=== PATIENT | male | born 1965 | race Caucasian/White ===

== ENCOUNTER 2018-02-26 13:46 | Inpatient (IN) | payer OTHER, MEDICAID ==
[~2018-02-26] VITALS: Ht 167.6 cm; Wt 56.7 kg
[~2018-02-26 13:46] MED LIST: FOLI-43 PO; INSLIS SUBCUT; LISI1TAB9 MT; METF10004 PO
[2018-02-26] MEDS ORDERED: MORPHINE SULFATE 4 MG/ML CPJ (NOT FOR IM USE) IV STA (16:23)
[2018-02-26] MEDS ORDERED: METOCLOPRAMIDE HCL 10MG/2ML VIAL IV STA (16:23)
[2018-02-26] MEDS ORDERED: FAMOTIDINE 20MG/2ML VIAL IV STA (16:23)
[2018-02-26 16:53] LABS: HEMATOCRIT. 40.2 % (42.0-52.0); HEMOGLOBIN. 13.2 g/dL (14.0-18.0); MEAN CORPUSCULAR VOLUME 94.2 fL (80.0-94.0); MEAN PLATELET VOLUME 8.4 fl (7.4-10.4); RED BLOOD CELL COUNT 4.27 mill/uL (4.7-6.1); RED CELL DISTRIBUTION WIDTH 15.6 % (11.6-14.6)
[2018-02-26 16:57] LABS: PLATELET 34 x1000/uL (130-400)
[2018-02-26 16:59] LABS: CHLORIDE 105 mEq/L (98-107)
[2018-02-26 17:04] LABS: ETHANOL BLOOD 59 mg/dL
[2018-02-26 17:42] LABS: PLATELET ESTIMATE MARKEDLY DECREASED
[2018-02-26 17:53] LABS: CLARITY URINE CLEAR (CLEAR); COLOR URINE YELLOW (YELLOW); KETONES URINE 3+ (NEGATIVE); LEUKOCYTE ESTERASE URINE NEGATIVE (NEGATIVE); NITRITE URINE NEGATIVE (NEGATIVE); OCCULT BLOOD URINE 1+ (NEGATIVE); PH URINE 5.5 (4.5-8.0); PROTEIN URINE TRACE (NEGATIVE); SPECIFIC GRAVITY URINE 1.028 (1.005-1.030); UROBILINOGEN URINE 0.2 E.U./dL (0.2-1.0)
[2018-02-26] MEDS ORDERED: IOHEXOL-300 100 ML BOTTLE ONE (18:09)
[2018-02-26 18:11] LABS: *BARBITURATES SCREEN URINE NEGATIVE (NEGATIVE)
[2018-02-26 18:12] LABS: *AMPHETAMINES SCREEN URINE NEGATIVE (NEGATIVE); *BENZODIAZEPINES SCREEN URINE NEGATIVE (NEGATIVE); *COCAINE SCREEN URINE NEGATIVE (NEGATIVE); METHADONE URINE SCREEN NEGATIVE (NEGATIVE); OPIATES URINE SCREEN NEGATIVE (NEGATIVE); PHENCYCLIDINE URINE SCREEN NEGATIVE (NEGATIVE)
[2018-02-26 18:13] LABS: CANNABINOID URINE SCREEN NEGATIVE (NEGATIVE)
[2018-02-26] MEDS ORDERED: SODIUM CHLORIDE 0.9% 1000ML BAG (SEPSIS BOLUS) IV ONE (19:15)
[2018-02-26] MEDS ORDERED: CEFTRIAXONE 1 G PREMIX 50 ML IV ONE (19:15)
[2018-02-26] MEDS ORDERED: POTASSIUM CHLORIDE 20MEQ TABLET SR PO ONE (19:30)
[2018-02-26] MEDS: HYDROMORPHONE HCL/PF 2MG/ML CPJ IV PRN (22:33)
[2018-02-26] MEDS ORDERED: ONDANSETRON HCL 4MG/2ML INJ IV PRN (23:14)
[2018-02-27] VITALS (8 sets, daily range): BP systolic 117–170; BP diastolic 74–100
[2018-02-27] MEDS: DEXT 5%/0.45% NACL 1000ML 1,000 ML IV SCH ×2 (04:05→15:00)
[2018-02-27] MEDS: HYDROMORPHONE HCL/PF 2MG/ML CPJ IV PRN ×4 (04:07→21:57)
[2018-02-27] MEDS: CLONIDINE 0.1MG TABLET PO PRN ×2 (04:08→15:00)
[2018-02-27 06:58] LABS: BASOPHILS % 0.2 % (0.0-2.0); EOSINOPHILS % 0.1 % (0.0-5.0); HEMATOCRIT. 37.2 % (42.0-52.0); HEMOGLOBIN. 12.2 g/dL (14.0-18.0); LYMPHOCYTES % 12.6 % (20.0-50.0); MEAN CORPUSCULAR HEMOGLOBIN 30.9 pg (28.0-32.0); MEAN PLATELET VOLUME 8.7 fl (7.4-10.4); MONOCYTES % 8.1 % (2.0-8.0); RED BLOOD CELL COUNT 3.96 mill/uL (4.7-6.1); RED CELL DISTRIBUTION WIDTH 15.5 % (11.6-14.6)
[2018-02-27 07:44] LABS: PLATELET 28 x1000/uL (130-400)
[2018-02-27 08:41] LABS: CHLORIDE 114 mEq/L (98-107)
[2018-02-27] MEDS ORDERED: DEXTROSE 50% WATER 50ML SYRINGE IV PRN (15:15)
[2018-02-27] MEDS: BLOOD SUGAR DIAGNOSTIC STRIP TEST SCH ×2 (17:35→21:56)
[2018-02-27] MEDS: INSULIN LISPRO 100 UNITS/ML SUBCUT SCH ×2 (17:48→22:15)
[2018-02-28] VITALS: BP 117/78
[2018-02-28] MEDS: HYDROMORPHONE HCL/PF 2MG/ML CPJ IV PRN ×2 (03:59→08:39)
[2018-02-28 04:00] VITALS: BP 119/84
[2018-02-28] MEDS: DEXT 5%/0.45% NACL 1000ML 1,000 ML IV SCH (06:38)
[2018-02-28] MEDS: BLOOD SUGAR DIAGNOSTIC STRIP TEST SCH ×2 (06:53→12:12)
[2018-02-28 08:00] VITALS: BP 120/78
[2018-02-28] MEDS: INSULIN LISPRO 100 UNITS/ML SUBCUT SCH ×2 (08:38→13:12)
[2018-02-28 12:00] VITALS: BP 124/85
[2018-02-28 12:13] VITALS: BP 124/85
== END 2018-02-28 14:20 | disposition home or self-care (01) | DRG 282 ==
LOC: ER 13:46 → 6WST 19:54 → EDBEDREQ 20:05 → EDBEDREQTM 20:05 → SUPCPDRO 20:15 → ENRESERV 22:12 → 6EST 02-27 14:26
PROVIDERS: ADMIT Hospitalist; ATTEND Hospitalist
DX: K85.90 Acute pancreatitis without necrosis or infection, unspecified (principal); D69.6 Thrombocytopenia, unspecified; E87.2 Acidosis; F10.10 Alcohol abuse, uncomplicated; K86.1 Other chronic pancreatitis; I10 Essential (primary) hypertension; E11.9 Type 2 diabetes mellitus without complications; Z59.0 Homelessness
CPT/HCPCS: 36415; 71045; 74177; 80053; 80305; 81003; 82962; 83605; 83690; 84484; 85025; 87040; 93005; 96361; 96374; 96375; 99285; G0482; J0696; J1170; J1815; J2270; J2405; J2765; J3490; J7030; Q9967